=== PATIENT | female | born 1955 | race Asian ===

== ENCOUNTER 2017-08-15 07:20 | Day surgery (SDC) | payer OTHER ==
[2017-08-15] MEDS ORDERED: FENTAnyl 50 MCG/ML VIAL (09:38)
[2017-08-15] MEDS ORDERED: MIDAZOLAM 1 MG/ML 2 ML INJ (09:38)
== END 2017-08-15 16:04 | disposition home or self-care (01) ==
LOC: GIL 07:20
DX: Z12.11 Encounter for screening for malignant neoplasm of colon (principal); K64.8 Other hemorrhoids
CPT/HCPCS: 45378